=== PATIENT | male | born 1955 | race Caucasian/White ===

== ENCOUNTER → 2018-08-17 07:46 | Outpatient (CLI) | payer MEDICAID, SELFPAY | PROVIDERS: PCP Family Medicine; Visit Provider Family Medicine | DX: R07.89 Other chest pain (principal) | CPT/HCPCS: 93017 ==

== ENCOUNTER → 2018-09-21 12:25 | Outpatient (CLI) | payer MEDICAID, SELFPAY ==
--- NOTE | 2018-09-21 12:27 | NM_ITS ---
History and Indications: Hypertension, hyperlipidemia, tobacco use, chest pain, palpitation and fatigue Procedure: Patient received a 0.4 mg of Lexiscan, resting blood pressure 190/104, with Lexiscan maximum heart rate achieved was 74 bpm which is less than 85% of the maximum predicted heart rate and a blood pressure was 151/90. With Lexiscan patient complained of shortness of breath Electrocardiogram: Resting electrocardiogram showed sinus bradycardia, with Lexiscan there is less than 1.[address] segment depression noted from the baseline EKG. The EKG portion of the Lexiscan Myoview is nondiagnostic. Cardiac stress and resting SPECT images: Cardiac stress and the suspect images were obtained using technetium 99 Myoview 32.6 mCi at stress than 10.4 mCi at rest. Gated SPECT further analysis of segmental wall motion and calculation of the ejection fraction also done. Cardiac stress and resting SPECT images show a partial reversible defect involving the inferior and posterobasal wall suggestive of Lexiscan scar in that area. In addition there is reversible ischemia seen at the apex. Computer derived ejection fraction is 45% with moderate inferior and posterobasal wall hypokinesis, right ventricle is normal size and contractility. Conclusion: 1. The EKG portion of the Lexiscan Myoview is nondiagnostic. 2. Scintigraphic evidence of mixed ischemia and scar involving the inferior and posterobasal wall, mild ischemia seen at the apex also. Computer derived ejection fraction 45% with segmental wall motion abnormality described above, right ventricle is normal size and contractility. 3. Abnormal Lexiscan Myoview study.
--- NOTE | 2018-09-21 12:27 | CA_ITS ---
PROCEDURE: 2-D M-mode and color Doppler study INDICATIONS FOR THE TEST: Chest pain + COPD Heart Murmur Tobacco Smoking+ Palpitations Fatigue Syncope Edema Hypertension+Diabetes Mellitus Rheumatic Fever SOB GARCIA+Obesity Hyperlipidemia+ Family History HD Additional History abn stress test PATIENT INFORMATION HEIGHT: 68 WEIGHT:181 GENDER: Male B/P:180/115 2-D/M-MODE INTERPRETATION: 2-D MEASUREMENTS OBSERVED VALUES IN CMS Right Ventricular Dimension (RVDd) 1.7 Interventricular Septum (Thickness)(IVsd) 0.9 Left Ventricular Internal Dimensions(LVIDd) 5.1 Left Ventricular Posterior Wall (Thickness)(LVPWd) 0.9 Aortic Root 2.9 Aortic Cusp Separation 2.3 Left Atrial Dimensions (LAD) 4.2 2D 1. Left atrium is mildly enlarged, left ventricle is normal size, mild concentric left ventricular hypertrophy, visually estimated ejection fraction 55% with no regional wall motion abnormality. 2. The right atrium and right ventricle are normal size and contractility. 3. The aortic valve is minimally thickened and fibrosed. 4. The mitral and tricuspid valvular grossly normal. 5. The pulmonic valve is poorly visualized. 6. No significant pericardial effusion noted. DOPPLER INTERROGATION: Doppler interrogation of the aortic, mitral and tricuspid valvular presence of mild mitral and tricuspid regurgitation, tricuspid regurgitation jet velocity is inadequate for calculation of the right ventricular systolic pressure, grade 1 diastolic dysfunction seen with tissue Doppler evidence of raised left atrial pressure. CONCLUSION: 1. Mildly enlarged left atrium, normal left ventricular size, mild concentric left ventricular hypertrophy, visually estimated ejection fraction 55% with no regional wall motion abnormality, grade 1 diastolic dysfunction seen with tissue Doppler evidence of raised left atrial pressure. 2. Mild mitral and tricuspid regurgitation 3. No significant pericardial effusion noted.
--- NOTE | 2018-09-21 14:01 | HMH.ITSHM ---
Current Home Medications as stated by this patient Lorenzo Saldana or farm loan representative. []LISINOPRIL DOXCIZOSIN METOPROLOL ASA
== END ==
PROVIDERS: PCP Family Medicine; Visit Provider Internal Medicine
DX: R07.9 Chest pain, unspecified (principal); R06.00 Dyspnea, unspecified; R94.39 Abnormal result of other cardiovascular function study; E78.5 Hyperlipidemia, unspecified; F17.200 Nicotine dependence, unspecified, uncomplicated; I10 Essential (primary) hypertension; R06.83 Snoring; R40.0 Somnolence
CPT/HCPCS: 78452; 93017; 93306; A9502; J2785

== ENCOUNTER → 2018-09-23 08:38 | Outpatient (CLI) | payer MEDICAID, SELFPAY ==
--- NOTE | 2018-09-23 08:40 | AS_ITS ---
Renal Arterial Duplex Indications: 405.91 Unspecified renovascular hypertension. IMPRESSIONS 1. Less than 60% stenosis involving the right renal artery 2. The left renal artery appears normal. History: Risk factors: Current tobacco use. Hypertension. Dyslipidemia. Complete renal arterial duplex. Duplex scan and Doppler flow study including spectral analysis, color and sandoval scale imaging. Height: Height: 172.7cm. Height: 68in. Weight: Weight: 82.1kg. Weight: 180.6lb. Body mass index: BMI: 27.5kg/m^2. Body surface area: BSA: 2m^2. Location: Vascular laboratory. Patient status: Outpatient. Findings: Cyst in the left lower pole cortex. Dimensions: 2cm (AP D). Cyst in the right lower pole cortex. Dimensions: 1cm (AP D). Tables: Arterial flow: + +--------+--------+ Location V sys V ed + +--------+--------+ Right renal - proximal 198cm/s 33.4cm/s + +--------+--------+ Right renal - mid 104cm/s 28.2cm/s + +--------+--------+ Right renal - distal 138cm/s 31.4cm/s + +--------+--------+ Left renal - proximal 101cm/s 23.7cm/s + +--------+--------+ Left renal - mid 118cm/s 31.9cm/s + +--------+--------+ Left renal - distal 71cm/s 12.8cm/s + +--------+--------+ RIGHT RENAL-ORIGIN 216cm/s 67.2cm/s + +--------+--------+ LEFT RENAL-ORIGIN 112cm/s 27.5cm/s + +--------+--------+ Aorta-prox 90.9cm/s -------- + +--------+--------+ Renal anatomy: + +------+------+ Left Right + +------+------+ Long axis 11.8cm 11.5cm + +------+------+ Short axis 7.9cm 8.4cm + +------+------+ Cortical thickness 1.5cm 1.5cm + +------+------+ Velocity ratios: + +-----+ V sys + +-----+ Right renal/aortic 2.4 + +-----+ Left renal/aortic 1.3 + +-----+ (Report amended ) Electronically signed by: Skyler Gleason [id number]
== END ==
PROVIDERS: PCP Family Medicine; Visit Provider Internal Medicine
DX: I10 Essential (primary) hypertension (principal); R06.00 Dyspnea, unspecified; E78.5 Hyperlipidemia, unspecified; R06.83 Snoring; R07.9 Chest pain, unspecified; R40.0 Somnolence; R94.39 Abnormal result of other cardiovascular function study; F17.200 Nicotine dependence, unspecified, uncomplicated
CPT/HCPCS: 93976

== ENCOUNTER → 2018-12-14 10:44 | Outpatient (CLI) | payer MEDICAID, SELFPAY ==
[2018-12-14 11:57] LABS: Basophils % 0.4 % (0.1-2.0); Eosinophils # 0.2 K/mm3 (0.0-0.4); Hematocrit 32.6 % (42.0-52.0); Hemoglobin 11.6 g/dL (14.1-18.0); Lymphocytes # 0.9 K/mm3 (0.7-4.5); Lymphocytes % 22.2 % (10-50); Mean Corpuscular HGB Conc 35.7 g/dL (31.8-35.4); Mean Corpuscular Hemoglobin 34.9 pg (27.0-31.2); Mean Corpuscular Volume 97.7 fl (80-94); Mean Platelet Volume 7.2 fl (7.4-10.4); Monocytes # 0.4 K/mm3 (0.1-1.0); Monocytes % 8.8 % (1.7-9.3); Neutrophils # 2.7 K/mm3 (1.8-7.8); Neutrophils % 63.6 % (37.0-80.0); Platelet Count 198 K/mm3 (142-424); Red Blood Count 3.33 M/mm3 (4.60-6.20); Red Cell Distribution Width 14.1 % (11.5-17.5); White Blood Count 4.2 K/mm3 (4.8-10.8)
[2018-12-14 13:11] LABS: Anion Gap 15.2 mEq/L (5-15); Blood Urea Nitrogen 32 mg/dL (7-18); Carbon Dioxide 26 mmol/L (21.0-32.0); Chloride 106 mmol/L (98-107); Creatinine,Serum 2.05 mg/dL (0.70-1.30); Estimated Glomerular Filt Rate 33 ml/min (>60); GFR (African American) 40 ML/MIN (>60); Glucose 121 mg/dL (74-106); Potassium 5.2 mmoL/L (3.5-5.1); Sodium 142 mmol/L (136-145)
== END ==
PROVIDERS: PCP Family Medicine; Visit Provider Thoracic Surgery (Cardiothoracic Vascular Surgery)
DX: I25.10 Atherosclerotic heart disease of native coronary artery without angina pectoris (principal)
CPT/HCPCS: 36415; 80048; 85025

== ENCOUNTER 2018-12-21 13:50 | Outpatient (RCR) | payer MEDICAID, SELFPAY | END 2019-03-04 15:28 | disposition home or self-care (01) | LOC: PT 13:50 | PROVIDERS: Visit Provider Internal Medicine | DX: I25.10 Atherosclerotic heart disease of native coronary artery without angina pectoris (principal) | CPT/HCPCS: 93798 ==

== ENCOUNTER → 2019-01-11 14:13 | Outpatient (CLI) | payer MEDICAID, SELFPAY ==
[2019-01-11 15:54] LABS: Anion Gap 16.2 mEq/L (5-15); Blood Urea Nitrogen 37 mg/dL (7-18); Carbon Dioxide 24 mmol/L (21.0-32.0); Chloride 105 mmol/L (98-107); Estimated Glomerular Filt Rate 36 ml/min (>60); GFR (African American) 44 ML/MIN (>60); Glucose 94 mg/dL (74-106); Potassium 5.2 mmoL/L (3.5-5.1); Sodium 140 mmol/L (136-145)
== END ==
PROVIDERS: Visit Provider Nurse Practitioner Family
DX: I25.810 Atherosclerosis of coronary artery bypass graft(s) without angina pectoris (principal); I70.1 Atherosclerosis of renal artery; I73.9 Peripheral vascular disease, unspecified; I10 Essential (primary) hypertension; E78.49 Other hyperlipidemia; F17.200 Nicotine dependence, unspecified, uncomplicated; Z95.1 Presence of aortocoronary bypass graft
CPT/HCPCS: 36415; 80048

== ENCOUNTER → 2019-02-08 14:16 | Outpatient (CLI) | payer MEDICAID, SELFPAY ==
[2019-02-08 16:29] LABS: Anion Gap 17.2 mEq/L (5-15); Blood Urea Nitrogen 34 mg/dL (7-18); Calcium 9.3 mg/dL (8.5-10.1); Carbon Dioxide 23 mmol/L (21.0-32.0); Chloride 105 mmol/L (98-107); Creatinine,Serum 2.05 mg/dL (0.70-1.30); Estimated Glomerular Filt Rate 33 ml/min (>60); GFR (African American) 40 ML/MIN (>60); Glucose 94 mg/dL (74-106); Sodium 139 mmol/L (136-145)
[2019-02-09 11:10] LABS: Potassium 6.2 mmoL/L (3.5-5.1)
== END ==
PROVIDERS: Visit Provider Physician Assistant
DX: I10 Essential (primary) hypertension (principal); I25.810 Atherosclerosis of coronary artery bypass graft(s) without angina pectoris; I70.1 Atherosclerosis of renal artery
CPT/HCPCS: 36415; 80048; 93005

== ENCOUNTER → 2019-08-16 13:43 | Outpatient (CLI) | payer OTHER, SELFPAY | PROVIDERS: PCP Family Medicine; Visit Provider Urology | DX: R42 Dizziness and giddiness (principal); R07.9 Chest pain, unspecified; R06.00 Dyspnea, unspecified; I25.10 Atherosclerotic heart disease of native coronary artery without angina pectoris; I70.1 Atherosclerosis of renal artery; E78.2 Mixed hyperlipidemia; I10 Essential (primary) hypertension; F17.200 Nicotine dependence, unspecified, uncomplicated; I73.9 Peripheral vascular disease, unspecified; Z95.1 Presence of aortocoronary bypass graft | CPT/HCPCS: 93270 ==

== ENCOUNTER → 2019-08-24 09:32 | Outpatient (CLI) | payer OTHER, SELFPAY ==
--- NOTE | 2019-08-24 09:33 | CA_ITS ---
APPROVED REPORT Ophthalmology Surgical Technician: Meagan Zelaya RVT Laterality: Bilateral Study Quality: Good Indications: dizziness Risk Factors Hypertension: Hyperlipidemia Smoking Doppler Spectral Velocity Analysis ECA (R) 60.80/10.60 cm/s ECA (L) 54.90/7.80 cm/s dICA (R) 55.70/23.40 cm/s dICA (L) 43.50/14.90 cm/s Aura (R) 67.20/30.20 cm/s Aura (L) 42.30/18.80 cm/s pICA (R) 60.70/24.30 cm/s pICA (L) 44.50/10.00 cm/s dCCA (R) 57.00/18.40 cm/s dCCA (L) 60.80/18.70 cm/s pCCA (R) 62.40/17.50 cm/s pCCA (L) 56.30/15.40 cm/s Vert (R) 33.60/11.80 cm/s Vert (L) 39.90/12.60 cm/s ICA/CCA 1.18 ICA/CCA 0.73 Findings Study suggests less than 20% stenosis of the right internal cartoid artery. Study suggests less than 20% stenosis of the left internal cartoid artery. Antegrade flow seen bilateral vertebral arteries. Conclusion No increased velocities to suggest hemodynamically significant stenosis in either internal carotid artery. Electronically signed by : Skyler Gleason MD 08/24/2019 16:40:08
--- NOTE | 2019-08-24 09:33 | CA_ITS ---
APPROVED REPORT EXAM: Comprehensive 2D, Doppler, and color-flow Echocardiogram Glove Presser: Meagan Zelaya RVT Ht: 5 ft 8 in Wt: 170lbs BSA: 1.91 BP: 130/80 mmHg Indications: Chest Pain, Shortness of Breath, Dyspnea, CAD, Hyperlipidemia, Hypertension,Smoker 2D Dimensions LVOT 2.33 cm (M/F) 1.5-2.5 M-Mode Dimensions RVDd 2.47 cm (0.9-2.6) LVDd 5.25 cm (3.5-5.7) LVDs 3.58 cm (3.5-5.7) IVSd 0.80 cm (0.6-1.1) PWd 1.14 cm (0.6-1.1) EF (Teich) 59.40% FS 31.80% EDV (Teich) 132.40 mL ESV (Teich) 53.70 mL LV Diastology E/A Ratio 1.65 Mitral Valve MV A Velocity 45.00 (40-130 cm/s) Left Ventricle Left atrium is mildly enlarged, left ventricle is normal size, mild concentric left ventricular hypertrophy, visually estimated ejection fraction 55% with no regional wall motion abnormality, endocardial surfaces are poorly visualized. Diastolic parameters are inconclusive. Right Ventricle Right atrium and right ventricular mildly enlarged with normal contractility. Aortic Valve Aortic valve is minimally thickened and fibrosed, there is no aortic stenosis aortic insufficiency. Mitral Valve Mitral valve is grossly normal, there is mild mitral regurgitation. Tricuspid Valve Tricuspid valve is grossly normal, there is mild tricuspid regurgitation, tricuspid regurgitation jet velocity is inadequate for calculation of the right ventricular systolic pressure. Pulmonic Valve Pulmonic valve is poorly visualized. Great Vessels Aortic root is normal size. Pericardium No significant pericardial effusion noted. Conclusion 1. Mildly enlarged left atrium, normal left ventricular size, mild concentric left ventricular hypertrophy, visually estimated ejection fraction 55% with no regional wall motion abnormality, diastolic parameters are inconclusive. 2. Mildly enlarged right ventricle with normal contractility. 3. Mild mitral and tricuspid regurgitation. 4. No significant pericardial effusion noted. Electronically signed by : Meet Vivar, 08/25/2019 16:27:51
== END ==
PROVIDERS: PCP Family Medicine; Visit Provider Urology
DX: R42 Dizziness and giddiness (principal); E78.2 Mixed hyperlipidemia; F17.200 Nicotine dependence, unspecified, uncomplicated; I10 Essential (primary) hypertension; I25.10 Atherosclerotic heart disease of native coronary artery without angina pectoris; I70.1 Atherosclerosis of renal artery; I73.9 Peripheral vascular disease, unspecified; Z95.1 Presence of aortocoronary bypass graft; E78.5 Hyperlipidemia, unspecified
CPT/HCPCS: 93306; 93880

== ENCOUNTER → 2023-04-21 13:59 | Outpatient (CLI) | payer MEDICARE, SELFPAY ==
--- NOTE | 2023-04-21 14:05 | US_ITS ---
FINAL REPORT TECHNIQUE: Ultrasound images of the kidneys and bladder were obtained. CLINICAL HISTORY: RENAL INSUFFICIENCY FINDINGS: The right kidney measures 11.5 cm in length. It is normal in echogenicity. There is no hydronephrosis. The left kidney measures 10.4 cm in length. It is normal in echogenicity. There is no hydronephrosis. There are multiple bilateral renal cysts measuring up to 3.7 cm on the left and 3.2 cm on the right. The spleen is unremarkable. IMPRESSION: Multiple bilateral renal cysts. Reviewed, Interpreted and Dictated by Luigi Hassan III, MD Transcribed by Juliette Goldman Authenticated and [facility]
[2023-04-21 15:30] LABS: Chloride 113 mmol/L (98-107); Potassium 5.4 mmoL/L (3.5-5.1); Sodium 142 mmol/L (136-145)
[2023-04-21 15:33] LABS: Anion Gap 16.4 mEq/L (5-15); Blood Urea Nitrogen 55 mg/dl (9-20); Carbon Dioxide 18 mmol/L (22.0-30.0); Estimated Glomerular Filt Rate 26 ml/min (>60); GFR (African American) 31 ML/MIN (>60)
[2023-04-21 15:34] LABS: Calcium 8.3 mg/dl (8.4-10.2); Glucose 108 mg/dl (74-100)
== END ==
PROVIDERS: PCP Family Medicine; Visit Provider Nurse Practitioner Family
DX: N28.9 Disorder of kidney and ureter, unspecified (principal)
CPT/HCPCS: 36415; 76770; 80048

== ENCOUNTER → 2023-05-13 07:54 | Outpatient (CLI) | payer MEDICARE, SELFPAY ==
--- NOTE | 2023-05-13 08:04 | CA_ITS ---
FINAL REPORT TECHNIQUE: Grayscale, color Doppler and duplex Doppler ultrasound of the kidneys, aorta and renal arteries was performed. Multiple velocities were measured. CLINICAL HISTORY: RENAL FAILURE,HTN,STENT RIGHT KIDNEY(LUCHO) FINDINGS: Aorta velocity: 97 cm/sec Right kidney: 11.6 cm. There is no evidence of hydronephrosis. There are bilateral renal cysts. Largest cyst on the right measures 3.7 cm. Right intrarenal RI: .61 Right renal artery velocity: 136 cm/sec. Right RAR (Renal artery-Aortic Ratio): 1.4 Left Kidney: 12.6 cm. There is no hydronephrosis. There are bilateral renal cysts. Largest cyst on the left measures 4.1 cm. Left intrarenal RI: 0.66 Left renal artery velocity: 155 cm/sec. Left RAR (Renal Artery-Aortic Ratio): 1.6 IMPRESSION: No evidence of significant renal artery stenosis. Bilateral renal cysts. CT angiogram or postcontrast MR angiogram would be more sensitive for evaluation of possible renal artery stenosis. Reviewed, Interpreted and Dictated by Luigi Hassan III, MD Transcribed by Juliette Goldman Authenticated and . [facility]
== END ==
LOC: RT 07:57
PROVIDERS: PCP Family Medicine; Visit Provider Nurse Practitioner Family
DX: N17.9 Acute kidney failure, unspecified (principal)
CPT/HCPCS: 93976

== ENCOUNTER → 2023-07-08 06:47 | Outpatient (CLI) | payer MEDICARE, SELFPAY ==
--- NOTE | 2023-07-08 07:13 | CT_ITS ---
FINAL REPORT TECHNIQUE: Axial images were obtained from the lung apex to the mid abdomen by computed tomography. This study was performed with techniques to keep radiation doses as low as reasonably achievable (ALARA). Individualized dose reduction techniques using automated exposure control or adjustment of mA and/or kV according to the patient's size were employed. CLINICAL HISTORY: H/O TOBACCO USE former smoker, quit 14 months. smoked 1 ppd x 35 years FINDINGS: CHEST CT LOW DOSE CTDI vol (mGy): 2.90 DLP (mGy-cm): 117.50 There is dense vascular calcification of the coronary arteries. There is no axillary adenopathy. There is no hilar or mediastinal adenopathy. The heart is normal in size. There is no pericardial or pleural effusion. Lung window images demonstrate no suspicious infiltrate or nodule. Limited images of the upper abdomen are unremarkable. IMPRESSION: Lung RADS category 1. Recommend 12 month follow-up low-dose chest CT. Reviewed, Interpreted and Dictated by Gadiel Kilpatrick MD Transcribed by Juliette Goldman Authenticated and [facility]
--- NOTE | 2023-07-08 07:14 | US_ITS ---
FINAL REPORT CLINICAL HISTORY: ABD PAIN FINDINGS: RIGHT UPPER QUADRANT ULTRASOUND Sonographic images of the right upper quadrant were obtained. The pancreas is partially obscured.The liver has an unremarkable appearance. There is a small amount of sludge in the gallbladder. The gallbladder wall is normal. The common duct is normal. Multiple right renal cysts are identified. IMPRESSION: Gallbladder sludge. Right renal cysts. Reviewed, Interpreted and Dictated by Gadiel Kilpatrick MD Transcribed by Juliette Goldman Authenticated and [facility]
== END ==
LOC: RAD 06:50
PROVIDERS: PCP Family Medicine; Visit Provider Nurse Practitioner Family
DX: Z87.891 Personal history of nicotine dependence (principal); R10.9 Unspecified abdominal pain
CPT/HCPCS: 71271; 76705

== ENCOUNTER 2023-10-19 10:18 | Outpatient (CLI) | payer MEDICARE, SELFPAY ==
[2023-10-19 10:31] LABS: Microscopic, Urine URINE MICROSCOPIC (MICROSCOPIC)
[2023-10-19 10:47] LABS: Hematocrit 35.1 % (42.0-52.0); Hemoglobin 11.4 g/dL (14.1-18.0); Mean Corpuscular HGB Conc 32.4 g/dL (31.8-35.4); Mean Corpuscular Hemoglobin 33.5 pg (27.0-31.2); Mean Corpuscular Volume 103.3 fl (80-94); Platelet Count 205 K/mm3 (142-424); Red Cell Distribution Width 13.4 % (11.5-17.5); White Blood Count 4.9 K/mm3 (4.8-10.8)
[2023-10-19 10:52] LABS: Appearance,Urine CLEAR (Clear); Bilirubin,Urine Negative (Negative); Blood, Urine TRACE-I (Negative); Color,Urine YELLOW (Yellow); Glucose,Urine (UA) Negative (Negative); Ketones,Urine Negative (Negative); Leukocyte Esterase,Urine Negative (Negative); Nitrate,Urine Negative (Negative); PH,Urine 5.5 (5.0-8.5); Protein,Urine 2+ (Negative); Specific Gravity, Urine >= 1.030 (1.005-1.030); Urobilinogen,Urine 0.2 EU/dl (0.2)
[2023-10-19 11:10] LABS: Amorphous Sediment,Urine 1+ /lpf; Bacteria,Urine Trace /lpf; Mucus,Urine 1+ /lpf
[2023-10-19 11:11] LABS: Fine Granular Casts,Urine Occasional #/lpf (0)
[2023-10-19 11:12] LABS: Creatinine,Urine Random 242 mg/dL (Not Estab.)
[2023-10-19 11:14] LABS: Alanine Aminotransferase 18 U/L (12-78); Albumin/Globulin Ratio 1.7 (1.1-1.8); Alkaline Phosphatase 116 U/L (38-126); Anion Gap 11.3 mEq/L (5-15); Aspartate Amino Transferase 24 U/L (17-59); Bilirubin,Total 0.8 mg/dl (0.2-1.3); Blood Urea Nitrogen 41 mg/dl (9-20); Calcium 9.4 mg/dl (8.4-10.2); Carbon Dioxide 20 mmol/L (22.0-30.0); Chloride 113 mmol/L (98-107); Estimated Glomerular Filt Rate 30 ml/min (>60); GFR (African American) 36 ML/MIN (>60); Globulin 2.4 g/dL (1.3-3.2); Glucose 112 mg/dl (74-100); Potassium 5.3 mmoL/L (3.5-5.1); Sodium 139 mmol/L (136-145); Total Protein,Serum 6.4 g/dl (6.3-8.2); Uric Acid 8.6 mg/dl (3.5-8.5)
[2023-10-19 11:25] LABS: Intact Parathyroid Hormone 376.8 pg/mL (7.5-53.5)
[2023-10-19 11:43] LABS: Prostate Specific Ag Screen 1.8 ng/ml (0.0-4.0)
[2023-10-19 12:16] LABS: 25-OH Vitamin D, Total 12.9 ng/mL (30-100)
== END 2023-10-19 23:59 ==
LOC: LAB 10:20
PROVIDERS: PCP Family Medicine; Visit Provider Internal Medicine Nephrology
DX: N18.30 Chronic kidney disease, stage 3 unspecified; I10 Essential (primary) hypertension; Z12.5 Encounter for screening for malignant neoplasm of prostate
CPT/HCPCS: 36415; 80053; 81001; 82043; 82306; 82570; 83970; 84156; 84550; 85014; 85018; 85048; 85049; G0103

== ENCOUNTER 2024-02-03 12:17 | Outpatient (CLI) | payer MEDICARE, SELFPAY ==
[2024-02-03 13:15] LABS: Alanine Aminotransferase 16 U/L (12-78); Albumin Level 4.2 g/dl (3.5-5.0); Albumin/Globulin Ratio 1.7 (1.1-1.8); Alkaline Phosphatase 76 U/L (38-126); Anion Gap 14.4 mEq/L (5-15); Aspartate Amino Transferase 23 U/L (17-59); Bilirubin,Indirect 0.5 mg/dL (0.0-0.9); Bilirubin,Total 0.5 mg/dl (0.2-1.3); Bilirubin,Unconjugated 0.6 mg/dL (0.0-1.1); Blood Urea Nitrogen 44 mg/dl (9-20); Carbon Dioxide 21 mmol/L (22.0-30.0); Chloride 113 mmol/L (98-107); Estimated Glomerular Filt Rate 30 ml/min (>60); GFR (African American) 36 ML/MIN (>60); Globulin 2.5 g/dL (1.3-3.2); Glucose 106 mg/dl (74-100); Potassium 5.4 mmoL/L (3.5-5.1); Sodium 143 mmol/L (136-145); Total Protein,Serum 6.7 g/dl (6.3-8.2)
== END 2024-02-03 23:59 | disposition home or self-care (01) ==
LOC: LAB 12:24
PROVIDERS: PCP Family Medicine; Visit Provider Internal Medicine Nephrology
DX: N18.32 Chronic kidney disease, stage 3b (principal); E55.9 Vitamin D deficiency, unspecified; I10 Essential (primary) hypertension; E21.3 Hyperparathyroidism, unspecified
CPT/HCPCS: 36415; 80053; 80076

== ENCOUNTER 2024-02-17 14:06 | Outpatient (CLI) | payer MEDICARE, SELFPAY ==
[2024-02-17 15:38] LABS: Alanine Aminotransferase 13 U/L (12-78); Albumin Level 3.8 g/dl (3.5-5.0); Albumin/Globulin Ratio 1.4 (1.1-1.8); Alkaline Phosphatase 69 U/L (38-126); Anion Gap 13.1 mEq/L (5-15); Aspartate Amino Transferase 21 U/L (17-59); Bilirubin,Indirect 0.6 mg/dL (0.0-0.9); Bilirubin,Total 0.6 mg/dl (0.2-1.3); Bilirubin,Unconjugated 0.8 mg/dL (0.0-1.1); Blood Urea Nitrogen 45 mg/dl (9-20); Calcium 9.2 mg/dl (8.4-10.2); Carbon Dioxide 21 mmol/L (22.0-30.0); Chloride 112 mmol/L (98-107); Estimated Glomerular Filt Rate 28 ml/min (>60); GFR (African American) 34 ML/MIN (>60); Globulin 2.7 g/dL (1.3-3.2); Glucose 97 mg/dl (74-100); Potassium 5.1 mmoL/L (3.5-5.1); Sodium 141 mmol/L (136-145); Total Protein,Serum 6.5 g/dl (6.3-8.2)
== END 2024-02-17 23:59 | disposition home or self-care (01) ==
LOC: LAB 14:16
PROVIDERS: PCP Family Medicine; Visit Provider Internal Medicine Nephrology
DX: N18.32 Chronic kidney disease, stage 3b (principal); I10 Essential (primary) hypertension; E55.9 Vitamin D deficiency, unspecified; E21.3 Hyperparathyroidism, unspecified; Z72.0 Tobacco use
CPT/HCPCS: 36415; 80053; 80076

== ENCOUNTER 2024-03-18 13:24 | Outpatient (CLI) | payer MEDICARE, SELFPAY ==
[2024-03-18 13:39] LABS: Microscopic, Urine URINE MICROSCOPIC (MICROSCOPIC)
[2024-03-18 14:00] LABS: Basophils % 0.6 % (0.1-2.0); Eosinophils # 0.1 K/mm3 (0.0-0.4); Hematocrit 37.1 % (42.0-52.0); Hemoglobin 11.6 g/dL (14.1-18.0); Lymphocytes # 1.6 K/mm3 (0.7-4.5); Lymphocytes % 22.8 % (10-50); Mean Corpuscular HGB Conc 31.3 g/dL (31.8-35.4); Mean Corpuscular Volume 105.7 fl (80-94); Mean Platelet Volume 7.8 fl (7.4-10.4); Monocytes # 0.4 K/mm3 (0.1-1.0); Monocytes % 5.4 % (1.7-9.3); Neutrophils # 4.8 K/mm3 (1.8-7.8); Neutrophils % 69.3 % (37.0-80.0); Platelet Count 259 K/mm3 (142-424); Red Blood Count 3.51 M/mm3 (4.60-6.20); Red Cell Distribution Width 13.7 % (11.5-17.5); White Blood Count 6.9 K/mm3 (4.8-10.8)
[2024-03-18 14:09] LABS: Appearance,Urine SL CLOUDY (Clear); Bilirubin,Urine Negative (Negative); Blood, Urine 3+ (Negative); Color,Urine YELLOW (Yellow); Glucose,Urine (UA) Negative (Negative); Ketones,Urine Negative (Negative); Leukocyte Esterase,Urine Negative (Negative); Nitrate,Urine Negative (Negative); Protein,Urine 2+ (Negative); Specific Gravity, Urine 1.025 (1.005-1.030); Urobilinogen,Urine 0.2 EU/dl (0.2)
[2024-03-18 14:26] LABS: RBC,Urine TNTC #/hpf (0-3)
[2024-03-18 14:27] LABS: Bacteria,Urine 2+ /lpf
[2024-03-18 14:37] LABS: 25-OH Vitamin D, Total 57.3 ng/mL (30-100)
[2024-03-18 14:56] LABS: Alanine Aminotransferase 15 U/L (12-78); Albumin Level 4.1 g/dl (3.5-5.0); Albumin/Globulin Ratio 1.5 (1.1-1.8); Alkaline Phosphatase 66 U/L (38-126); Anion Gap 13.2 mEq/L (5-15); Aspartate Amino Transferase 25 U/L (17-59); Bilirubin,Total 0.7 mg/dl (0.2-1.3); Blood Urea Nitrogen 35 mg/dl (9-20); Calcium 9.7 mg/dl (8.4-10.2); Carbon Dioxide 21 mmol/L (22.0-30.0); Chloride 113 mmol/L (98-107); Estimated Glomerular Filt Rate 30 ml/min (>60); GFR (African American) 36 ML/MIN (>60); Globulin 2.7 g/dL (1.3-3.2); Glucose 110 mg/dl (74-100); Potassium 5.2 mmoL/L (3.5-5.1); Sodium 142 mmol/L (136-145); Total Protein,Serum 6.8 g/dl (6.3-8.2); Uric Acid 10.9 mg/dl (3.5-8.5)
[2024-03-18 16:08] LABS: Hemoglobin A1C 5.5 % (4.0-6.0)
[2024-03-23 10:45] LABS: Creatinine,Urine Random 250 mg/dL (Not Estab.)
[2024-03-28 14:10] LABS: PTH Related Peptide < 2.0 pmol/L (.)
== END 2024-03-18 23:59 | disposition home or self-care (01) ==
LOC: LAB 13:26
PROVIDERS: PCP Family Medicine; Visit Provider Internal Medicine Nephrology
DX: N18.32 Chronic kidney disease, stage 3b (principal); E55.9 Vitamin D deficiency, unspecified; E21.3 Hyperparathyroidism, unspecified; I12.0 Hypertensive chronic kidney disease with stage 5 chronic kidney disease or end stage renal disease
CPT/HCPCS: 36415; 80053; 81001; 82306; 82397; 82570; 83036; 84156; 84550; 85025; 87086

== ENCOUNTER 2024-04-19 12:01 | Outpatient (CLI) | payer MEDICARE, SELFPAY ==
[2024-04-19 13:31] LABS: Alanine Aminotransferase 17 U/L (12-78); Albumin Level 4.2 g/dl (3.5-5.0); Alkaline Phosphatase 64 U/L (38-126); Aspartate Amino Transferase 25 U/L (17-59); Bilirubin,Direct 0.3 mg/dl (0.0-0.4); Bilirubin,Indirect 0.6 mg/dL (0.0-0.9); Bilirubin,Total 0.9 mg/dl (0.2-1.3); Bilirubin,Unconjugated 0.6 mg/dL (0.0-1.1); Total Protein,Serum 6.6 g/dl (6.3-8.2)
== END 2024-04-19 23:59 | disposition home or self-care (01) ==
LOC: LAB 12:08
PROVIDERS: PCP Family Medicine; Visit Provider Internal Medicine Nephrology
DX: N18.32 Chronic kidney disease, stage 3b (principal); I10 Essential (primary) hypertension; E55.9 Vitamin D deficiency, unspecified; E21.3 Hyperparathyroidism, unspecified
CPT/HCPCS: 36415; 80076

== ENCOUNTER 2024-05-20 13:09 | Outpatient (CLI) | payer MEDICARE, SELFPAY ==
[2024-05-20 14:03] LABS: Alanine Aminotransferase 15 U/L (12-78); Alkaline Phosphatase 62 U/L (38-126); Aspartate Amino Transferase 20 U/L (17-59); Bilirubin,Direct 0.3 mg/dl (0.0-0.4); Bilirubin,Indirect 0.3 mg/dL (0.0-0.9); Bilirubin,Total 0.6 mg/dl (0.2-1.3); Bilirubin,Unconjugated 0.4 mg/dL (0.0-1.1); Total Protein,Serum 6.3 g/dl (6.3-8.2)
== END 2024-05-20 23:59 | disposition home or self-care (01) ==
PROVIDERS: PCP Family Medicine; Visit Provider Internal Medicine Nephrology
DX: N18.32 Chronic kidney disease, stage 3b (principal); I10 Essential (primary) hypertension; E55.9 Vitamin D deficiency, unspecified; E21.3 Hyperparathyroidism, unspecified
CPT/HCPCS: 36415; 80076

== ENCOUNTER 2024-06-21 14:33 | Outpatient (CLI) | payer MEDICARE, SELFPAY ==
[2024-06-21 15:36] LABS: Alanine Aminotransferase 14 U/L (12-78); Albumin Level 4.2 g/dl (3.5-5.0); Alkaline Phosphatase 63 U/L (38-126); Aspartate Amino Transferase 21 U/L (17-59); Bilirubin,Direct 0.4 mg/dl (0.0-0.4); Bilirubin,Indirect 0.2 mg/dL (0.0-0.9); Bilirubin,Total 0.6 mg/dl (0.2-1.3); Bilirubin,Unconjugated 0.1 mg/dL (0.0-1.1); Total Protein,Serum 6.3 g/dl (6.3-8.2)
== END 2024-06-21 23:59 | disposition home or self-care (01) ==
LOC: LAB 14:34
PROVIDERS: PCP Family Medicine; Visit Provider Internal Medicine Nephrology
DX: N18.32 Chronic kidney disease, stage 3b (principal); I10 Essential (primary) hypertension; E21.3 Hyperparathyroidism, unspecified; E55.9 Vitamin D deficiency, unspecified
CPT/HCPCS: 36415; 80076

== ENCOUNTER 2024-07-22 14:22 | Outpatient (CLI) | payer MEDICARE, SELFPAY ==
[2024-07-22 15:48] LABS: Albumin Level 4.3 g/dl (3.5-5.0)
[2024-07-22 15:51] LABS: Alanine Aminotransferase 17 U/L (12-78); Alkaline Phosphatase 67 U/L (38-126); Aspartate Amino Transferase 27 U/L (17-59); Bilirubin,Direct 0.4 mg/dl (0.0-0.4); Bilirubin,Indirect 0.3 mg/dL (0.0-0.9); Bilirubin,Total 0.7 mg/dl (0.2-1.3); Bilirubin,Unconjugated 0.3 mg/dL (0.0-1.1); Total Protein,Serum 6.7 g/dl (6.3-8.2)
== END 2024-07-22 23:59 | disposition home or self-care (01) ==
LOC: LAB 14:28
PROVIDERS: PCP Family Medicine; Visit Provider Internal Medicine Nephrology
DX: N18.32 Chronic kidney disease, stage 3b (principal); I10 Essential (primary) hypertension; E21.3 Hyperparathyroidism, unspecified; E55.9 Vitamin D deficiency, unspecified
CPT/HCPCS: 80076

== ENCOUNTER 2024-08-12 13:43 | Outpatient (CLI) | payer MEDICARE, SELFPAY ==
[2024-08-12 14:58] LABS: Albumin Level 3.8 g/dl (3.5-5.0); Chloride 107 mmol/L (98-107); Potassium 5.2 mmoL/L (3.5-5.1); Sodium 139 mmol/L (136-145)
[2024-08-12 15:00] LABS: Blood Urea Nitrogen 31 mg/dl (9-20); Estimated Glomerular Filt Rate 28 ml/min (>60); GFR (African American) 34 ML/MIN (>60)
[2024-08-12 15:01] LABS: Alanine Aminotransferase 17 U/L (12-78); Albumin/Globulin Ratio 1.5 (1.1-1.8); Alkaline Phosphatase 75 U/L (38-126); Anion Gap 16.2 mEq/L (5-15); Aspartate Amino Transferase 25 U/L (17-59); Bilirubin,Direct 0.1 mg/dl (0.0-0.4); Bilirubin,Total 0.4 mg/dl (0.2-1.3); Calcium 8.9 mg/dl (8.4-10.2); Carbon Dioxide 21 mmol/L (22.0-30.0); Globulin 2.5 g/dL (1.3-3.2); Glucose 101 mg/dl (74-100); Total Protein,Serum 6.3 g/dl (6.3-8.2)
== END 2024-08-12 23:59 | disposition home or self-care (01) ==
LOC: LAB 13:51
PROVIDERS: PCP Family Medicine; Visit Provider Internal Medicine Nephrology
DX: N18.32 Chronic kidney disease, stage 3b (principal); E55.9 Vitamin D deficiency, unspecified; I10 Essential (primary) hypertension; E21.3 Hyperparathyroidism, unspecified
CPT/HCPCS: 36415; 80053; 82248

== ENCOUNTER 2024-08-24 14:56 | Outpatient (CLI) | payer MEDICARE, SELFPAY ==
[2024-08-24 16:19] LABS: Albumin Level 4.7 g/dl (3.5-5.0)
[2024-08-24 16:22] LABS: Alanine Aminotransferase 17 U/L (12-78); Alkaline Phosphatase 81 U/L (38-126); Aspartate Amino Transferase 25 U/L (17-59); Bilirubin,Direct 0.1 mg/dl (0.0-0.4); Bilirubin,Indirect 0.4 mg/dL (0.0-0.9); Bilirubin,Total 0.5 mg/dl (0.2-1.3); Bilirubin,Unconjugated 0.4 mg/dL (0.0-1.1); Total Protein,Serum 6.7 g/dl (6.3-8.2)
== END 2024-08-24 23:59 | disposition home or self-care (01) ==
LOC: LAB 14:56
PROVIDERS: PCP Family Medicine; Visit Provider Internal Medicine Nephrology
DX: N18.32 Chronic kidney disease, stage 3b (principal); I10 Essential (primary) hypertension; E55.9 Vitamin D deficiency, unspecified; E21.3 Hyperparathyroidism, unspecified
CPT/HCPCS: 36415; 80076

== ENCOUNTER 2024-09-27 14:48 | Outpatient (CLI) | payer MEDICARE, SELFPAY ==
[2024-09-27 16:11] LABS: Albumin Level 4.6 g/dl (3.5-5.0)
[2024-09-27 16:14] LABS: Alanine Aminotransferase 14 U/L (12-78); Alkaline Phosphatase 87 U/L (38-126); Aspartate Amino Transferase 21 U/L (17-59); Bilirubin,Direct 0.1 mg/dl (0.0-0.4); Bilirubin,Indirect 0.5 mg/dL (0.0-0.9); Bilirubin,Total 0.6 mg/dl (0.2-1.3); Bilirubin,Unconjugated 0.4 mg/dL (0.0-1.1); Total Protein,Serum 6.8 g/dl (6.3-8.2)
== END 2024-09-27 23:59 | disposition home or self-care (01) ==
LOC: LAB 14:49
PROVIDERS: PCP Family Medicine; Visit Provider Internal Medicine Nephrology
DX: I12.9 Hypertensive chronic kidney disease with stage 1 through stage 4 chronic kidney disease, or unspecified chronic kidney disease (principal); N18.32 Chronic kidney disease, stage 3b; E55.9 Vitamin D deficiency, unspecified; E21.3 Hyperparathyroidism, unspecified; F17.210 Nicotine dependence, cigarettes, uncomplicated
CPT/HCPCS: 36415; 80076

== ENCOUNTER 2024-10-25 13:45 | Outpatient (CLI) | payer MEDICARE, SELFPAY ==
[2024-10-25 14:37] LABS: Albumin Level 4.2 g/dl (3.5-5.0)
[2024-10-25 14:40] LABS: Alanine Aminotransferase 14 U/L (12-78); Alkaline Phosphatase 70 U/L (38-126); Aspartate Amino Transferase 24 U/L (17-59); Bilirubin,Direct 0.1 mg/dl (0.0-0.4); Bilirubin,Indirect 0.5 mg/dL (0.0-0.9); Bilirubin,Total 0.6 mg/dl (0.2-1.3); Bilirubin,Unconjugated 0.5 mg/dL (0.0-1.1); Total Protein,Serum 6.8 g/dl (6.3-8.2)
--- OUTSIDE RECORDS SUMMARY | 2024-10-27 21:19 | XMS_ITS ---
Author Organization Unknown Medications Date Medication Dosage DosageUnit StartDate StopDate StopReason Active DoseQuantity DoseUnit Dispense DispenseUnit Refills NdcCode DrugCode PharmacyId IsPrescription MappedMedication Srcstatus 03/28 00:00 :00 AMLODIPINE 10 mg tablet 1 90 1 294291 23 990 P Unknown Status 03/28 00:00 :00 AMLODIPINE 10 mg tablet 1 90 1 825521 23 990 P Taking 04/18 00:00 :00 amLODIPine Besylate 10 MG Tablet 1 90 Tablet 1 [id number] 054 Start 04/18 00:00 :00 amLODIPine Besylate 10 MG Tablet 0 90 Tablet 1 [id number] 054 Stop 10/01 00:00 :00 amLODIPine Besylate 10 MG Tablet 1 90 Tablet 1 [id number] 054 Start 10/01 00:00 :00 amLODIPine Besylate 10 MG Tablet 0 0048 0716 810 Stop 06/30 00:00 :00 amLODIPine Besylate 10 MG Tablet 1 0048 0716 810 P Taking 05/12 00:00 :00 amLODIPine Besylate 10 MG Tablet 1 0048 0716 810 P Continue 05/12 00:00 :00 amLODIPine Besylate 10 MG Tablet 1 90 1 0048 0716 810 P Taking 05/05 00:00 :00 amLODIPine Besylate 10 MG Tablet 1 90 1 0048 0716 810 P Taking 03/30 00:00 :00 amLODIPine Besylate 10 MG Tablet 1 90 1 0048 0716 810 P Unknown Status 03/30 00:00 :00 amLODIPine Besylate 10 MG Tablet 1 90 1 0048 0716 810 P Taking 12/20 00:00 :00 amLODIPine Besylate 10 MG Tablet 1 90 1 0048 0716 810 P Unknown Status 06/30 00:00 :00 Aspirin 81 MG Tablet Delayed Release 1 [id number] 474 Taking 05/12 00:00 :00 Aspirin 81 MG Tablet Delayed Release 1 [id number] 474 Taking 05/05 00:00 :00 Aspirin 81 MG Tablet Delayed Release 1 [id number] 474 Taking 03/30 00:00 :00 Aspirin 81 MG Tablet Delayed Release 1 [id number] 474 Taking 12/20 00:00 :00 Aspirin 81 MG Tablet Delayed Release 1 [id number] 474 Taking 03/28 00:00 :00 ASPIRIN 81 mg delayed release tablet 1 [id number] 441 Taking 05/12 00:00 :00 ATORVASTATI N 80 mg tablet 1 90 1 5130474 3 012 Start 05/12 00:00 :00 ATORVASTATI N 80 mg tablet 0 90 1 [id number] 3 012 Stop 03/28 00:00 :00 ATORVASTATI N 80 mg tablet 1 90 1 0394025 3 012 P Unknown Status 03/28 00:00 :00 ATORVASTATI N 80 mg tablet 1 90 1 [id number] 3 012 P Taking 05/18 00:00 :00 Atorvastati n Calcium 80 MG Tablet 1 90 Tablet 1 91351375 705 Start 05/18 00:00 :00 Atorvastati n Calcium 80 MG Tablet 0 90 Tablet 1 [id number] 705 Stop 10/01 00:00 :00 Atorvastati n Calcium 80 MG Tablet 1 90 Tablet 1 54449525 705 Start 10/01 00:00 :00 Atorvastati n Calcium 80 MG Tablet 0 90 1 000 25647 705 Stop 06/30 00:00 :00 Atorvastati n Calcium 80 MG Tablet 1 90 1 000 46371 705 P Taking 05/12 00:00 :00 Atorvastati n Calcium 80 MG Tablet 1 90 1 000 30670 705 P Taking 05/05 00:00 :00 Atorvastati n Calcium 80 MG Tablet 1 90 1 000 41421 705 P Taking 03/30 00:00 :00 Atorvastati n Calcium 80 MG Tablet 1 90 1 000 53883 705 P Unknown Status 03/30 00:00 :00 Atorvastati n Calcium 80 MG Tablet 1 90 1 000 12791 705 Taking 12/20 00:00 :00 Atorvastati n Calcium 80 MG Tablet 1 90 1 000 64764 705 Start 03/28 00:00 :00 CLOPIDOGREL 75 mg tablet 1 90 1 99297 629 461 P Unknown Status 03/28 00:00 :00 CLOPIDOGREL 75 mg tablet 1 90 1 57022 629 461 P Taking 04/18 00:00 :00 Clopidogrel Bisulfate 75 MG Tablet 1 90 Tablet 1 70601741 461 Start 04/18 00:00 :00 Clopidogrel Bisulfate 75 MG Tablet 0 90 Tablet 1 00914888 461 Stop 10/01 00:00 :00 Clopidogrel Bisulfate 75 MG Tablet 1 90 Tablet 1 27423566 461 Start 10/01 00:00 :00 Clopidogrel Bisulfate 75 MG Tablet 0 90 1 009 86617 461 Stop 06/30 00:00 :00 Clopidogrel Bisulfate 75 MG Tablet 1 90 1 009 49930 461 P Taking 05/12 00:00 :00 Clopidogrel Bisulfate 75 MG Tablet 1 90 1 009 72447 461 P Taking 05/05 00:00 :00 Clopidogrel Bisulfate 75 MG Tablet 1 90 1 009 02075 461 P Taking 03/30 00:00 :00 Clopidogrel Bisulfate 75 MG Tablet 1 90 1 009 62758 461 P Unknown Status 03/30 00:00 :00 Clopidogrel Bisulfate 75 MG Tablet 1 90 1 009 73829 461 P Taking 12/20 00:00 :00 Clopidogrel Bisulfate 75 MG Tablet 1 90 1 009 09799 461 P Unknown Status 03/28 00:00 :00 DOCUSATE sodium 100 mg tablet 1 75414639 510 Taking 06/30 00:00 :00 Docusate Sodium 100 MG Tablet 1 02704 000 21 Taking 05/12 00:00 :00 Docusate Sodium 100 MG Tablet 1 86985 000 21 Taking 05/05 00:00 :00 Docusate Sodium 100 MG Tablet 1 16443 000 21 Taking 03/30 00:00 :00 Docusate Sodium 100 MG Tablet 1 11246 000 21 Taking 12/20 00:00 :00 Docusate Sodium 100 MG Tablet 1 81593 000 21 Taking 03/28 00:00 :00 DOXAZOSIN 8 mg tablet 1 90 1 33666396 610 P Unknown Status 03/28 00:00 :00 DOXAZOSIN 8 mg tablet 1 90 1 39540321 610 P Taking 07/06 00:00 :00 Doxazosin Mesylate 8 MG Tablet 1 60 Tablet 2 76297047 600 Start 07/06 00:00 :00 Doxazosin Mesylate 8 MG Tablet 0 60 Tablet 2 82064360 600 Stop 01/14 00:00 :00 Doxazosin Mesylate 8 MG Tablet 1 60 Tablet 2 06316275 600 Start 01/14 00:00 :00 Doxazosin Mesylate 8 MG Tablet 0 0009 3206 701 Stop 06/30 00:00 :00 Doxazosin Mesylate 8 MG Tablet 1 0009 3206 701 P Taking 05/12 00:00 :00 Doxazosin Mesylate 8 MG Tablet 1 0009 3206 701 P Continue 05/12 00:00 :00 Doxazosin Mesylate 8 MG Tablet 1 60 Tablet 1 53257951 701 P Taking 05/05 00:00 :00 Doxazosin Mesylate 8 MG Tablet 1 60 Tablet 1 78241175 701 P Increase 05/05 00:00 :00 Doxazosin Mesylate 8 MG Tablet 1 90 1 0009 3206 701 P Taking 03/30 00:00 :00 Doxazosin Mesylate 8 MG Tablet 1 90 1 0009 3206 701 P Unknown Status 03/30 00:00 :00 Doxazosin Mesylate 8 MG Tablet 1 90 1 0009 3206 701 P Taking 12/20 00:00 :00 Doxazosin Mesylate 8 MG Tablet 1 90 1 0009 3206 701 P Unknown Status 06/30 00:00 :00 Furosemide 40 MG Tablet 0 679724 29 925 P Not Taking 05/12 00:00 :00 Furosemide 40 MG Tablet 0 677956 29 925 P Not Taking 05/05 00:00 :00 Furosemide 40 MG Tablet 0 146734 29 925 P Not Taking 03/30 00:00 :00 Furosemide 40 MG Tablet 0 140385 29 925 P Not Taking 12/20 00:00 :00 Furosemide 40 MG Tablet 0 097949 29 925 P Not Taking 03/28 00:00 :00 FUROSEMIDE 40 mg tablet 0 195206 11 710 P Not Taking 06/30 00:00 :00 HYDROcodone -Acetaminop hen 5-325 MG Tablet 0 52051244 301 P Not Taking 05/12 00:00 :00 HYDROcodone -Acetaminop hen 5-325 MG Tablet 0 11333999 301 P Not Taking 05/05 00:00 :00 HYDROcodone -Acetaminop hen 5-325 MG Tablet 0 08064409 301 P Not Taking 03/30 00:00 :00 HYDROcodone -Acetaminop hen 5-325 MG Tablet 0 21057281 301 P Not Taking 12/20 00:00 :00 HYDROcodone -Acetaminop hen 5-325 MG Tablet 0 22495475 301 P Not Taking 06/30 00:00 :00 Levsin 0.125 MG Tablet 06/30/2023 00:00:00 1 80 2 5790061 1 210 P Start 04/18 00:00 :00 Lisinopril 10 MG Tablet 1 90 Tablet 1 6 0861090 090 Start 04/18 00:00 :00 Lisinopril 10 MG Tablet 0 90 Tablet 1 6 0404231 090 Stop 10/01 00:00 :00 Lisinopril 10 MG Tablet 1 90 Tablet 1 6 3418026 090 Start 10/01 00:00 :00 Lisinopril 10 MG Tablet 0 012235 40 701 Stop 06/30 00:00 :00 Lisinopril 10 MG Tablet 1 278942 40 701 P Taking 05/12 00:00 :00 Lisinopril 10 MG Tablet 1 571855 40 701 P Continue 05/12 00:00 :00 Lisinopril 10 MG Tablet 1 30 Tablet 2 0 8010621 701 P Taking 05/05 00:00 :00 Lisinopril 10 MG Tablet 1 30 Tablet 2 0 2917245 701 P Decrease 05/05 00:00 :00 Lisinopril 20 MG Tablet 1 90 1 522055 40 801 P Taking 03/30 00:00 :00 Lisinopril 20 MG Tablet 1 90 1 097404 40 801 P Unknown Status 03/30 00:00 :00 Lisinopril 20 MG Tablet 1 90 1 743365 40 801 P Taking 12/20 00:00 :00 Lisinopril 20 MG Tablet 1 90 1 322126 40 801 P Unknown Status 03/28 00:00 :00 LISINOPRIL 20 mg tablet 1 90 1 971411 42 090 P Unknown Status 03/28 00:00 :00 LISINOPRIL 20 mg tablet 1 90 1 366996 42 090 P Taking 02/24 00:00 :00 LISINOPRIL 20 mg tablet 1 90 1 654574 42 090 P Unknown Status 06/30 00:00 :00 Metoprolol Tartrate 50 MG Tablet 1 0037 8003 201 P Taking 05/12 00:00 :00 Metoprolol Tartrate 50 MG Tablet 1 0037 8003 201 P Decrease 05/12 00:00 :00 Metoprolol Tartrate 100 MG Tablet 1 180 1 003 08461 701 P Taking 05/05 00:00 :00 Metoprolol Tartrate 100 MG Tablet 1 180 1 003 96872 701 P Taking 03/30 00:00 :00 Metoprolol Tartrate 100 MG Tablet 1 180 1 003 29897 701 P Unknown Status 03/30 00:00 :00 Metoprolol Tartrate 100 MG Tablet 1 180 1 003 19019 701 P Taking 12/20 00:00 :00 Metoprolol Tartrate 100 MG Tablet 1 180 1 003 94487 701 P Unknown Status 03/28 00:00 :00 METOPROLOL TARTRATE 100 mg tablet 1 180 1 686 98375 159 P Unknown Status 03/28 00:00 :00 METOPROLOL TARTRATE 100 mg tablet 1 180 1 686 33322 159 P Taking 03/28 00:00 :00 NORCO 325 mg-5 mg tablet 0 07381261 201 P Not Taking
== END 2024-10-25 23:59 | disposition home or self-care (01) ==
LOC: LAB 13:46
PROVIDERS: PCP Family Medicine; Visit Provider Internal Medicine Nephrology
DX: I12.9 Hypertensive chronic kidney disease with stage 1 through stage 4 chronic kidney disease, or unspecified chronic kidney disease (principal); N18.32 Chronic kidney disease, stage 3b; E21.3 Hyperparathyroidism, unspecified; E55.9 Vitamin D deficiency, unspecified
CPT/HCPCS: 36415; 80076

== ENCOUNTER 2024-11-22 13:05 | Outpatient (CLI) | payer MEDICARE, SELFPAY ==
[2024-11-22 13:54] LABS: Microscopic, Urine URINE MICROSCOPIC (MICROSCOPIC)
[2024-11-22 14:02] LABS: Appearance,Urine CLEAR (Clear); Bilirubin,Urine Negative (Negative); Blood, Urine Negative (Negative); Color,Urine YELLOW (Yellow); Glucose,Urine (UA) Negative (Negative); Ketones,Urine Negative (Negative); Leukocyte Esterase,Urine Negative (Negative); Nitrate,Urine Negative (Negative); Protein,Urine 2+ (Negative); Specific Gravity, Urine 1.025 (1.005-1.030); Urobilinogen,Urine 0.2 EU/dl (0.2)
[2024-11-22 14:19] LABS: Albumin Level 4.5 g/dl (3.5-5.0)
[2024-11-22 14:22] LABS: Alanine Aminotransferase 12 U/L (12-78); Alkaline Phosphatase 74 U/L (38-126); Aspartate Amino Transferase 22 U/L (17-59); Bilirubin,Direct 0.2 mg/dl (0.0-0.4); Bilirubin,Indirect 0.3 mg/dL (0.0-0.9); Bilirubin,Total 0.5 mg/dl (0.2-1.3); Bilirubin,Unconjugated 0.4 mg/dL (0.0-1.1); Total Protein,Serum 6.7 g/dl (6.3-8.2)
[2024-11-22 14:22] LABS: Hematocrit 33.2 % (42.0-52.0); Hemoglobin 11.1 g/dL (14.1-18.0); Mean Corpuscular HGB Conc 33.4 g/dL (31.8-35.4); Mean Corpuscular Hemoglobin 33.2 pg (27.0-31.2); Mean Corpuscular Volume 99.4 fl (80-94); Nucleated Red Blood Cells # 0 10^3/uL; Nucleated Red Blood Cells % 0 %; Platelet Count 178 K/mm3 (142-424); Red Blood Count 3.34 M/mm3 (4.60-6.20); Red Cell Distribution Width 12.9 % (11.5-17.5); Red Cell Distribution Width-SD 47.1 fL; White Blood Count 4.7 K/mm3 (4.8-10.8)
[2024-11-22 14:33] LABS: Alanine Aminotransferase 14 U/L (12-78); Albumin Level 4.7 g/dl (3.5-5.0); Alkaline Phosphatase 68 U/L (38-126); Anion Gap 9.2 mEq/L (5-15); Aspartate Amino Transferase 24 U/L (17-59); Bilirubin,Total 0.7 mg/dl (0.2-1.3); Blood Urea Nitrogen 36 mg/dl (9-20); Calcium 9.6 mg/dl (8.4-10.2); Carbon Dioxide 23 mmol/L (22.0-30.0); Chloride 112 mmol/L (98-107); Estimated Glomerular Filt Rate 28 ml/min (>60); GFR (African American) 34 ML/MIN (>60); Globulin 2.3 g/dL (1.3-3.2); Glucose 95 mg/dl (74-100); Potassium 5.2 mmoL/L (3.5-5.1); Sodium 139 mmol/L (136-145)
[2024-11-22 14:47] LABS: Creatinine,Urine Random 205 mg/dL (Not Estab.)
[2024-11-22 15:02] LABS: Bacteria,Urine Trace /lpf
[2024-11-22 15:44] LABS: 25-OH Vitamin D, Total 67.2 ng/mL (30-100)
== END 2024-11-22 23:59 | disposition home or self-care (01) ==
PROVIDERS: PCP Family Medicine; Visit Provider Internal Medicine Nephrology
DX: I12.9 Hypertensive chronic kidney disease with stage 1 through stage 4 chronic kidney disease, or unspecified chronic kidney disease (principal); N18.32 Chronic kidney disease, stage 3b; E55.9 Vitamin D deficiency, unspecified; E21.3 Hyperparathyroidism, unspecified; F17.210 Nicotine dependence, cigarettes, uncomplicated
CPT/HCPCS: 36415; 80053; 80076; 81001; 82306; 82570; 83970; 84156; 85027

== ENCOUNTER 2024-12-07 14:49 | Outpatient (CLI) | payer MEDICARE, SELFPAY ==
[2024-12-07 15:04] LABS: Microscopic, Urine URINE MICROSCOPIC (MICROSCOPIC)
[2024-12-07 15:30] LABS: Appearance,Urine CLEAR (Clear); Bilirubin,Urine Negative (Negative); Blood, Urine Negative (Negative); Color,Urine YELLOW (Yellow); Glucose,Urine (UA) Negative (Negative); Ketones,Urine TRACE (Negative); Leukocyte Esterase,Urine Negative (Negative); Nitrate,Urine Negative (Negative); Protein,Urine 3+ (Negative); Specific Gravity, Urine 1.025 (1.005-1.030); Urobilinogen,Urine 0.2 EU/dl (0.2)
[2024-12-07 15:46] LABS: Bacteria,Urine 1+ /lpf; Mucus,Urine 2+ /lpf; Sperm,Urine OCC /lpf
[2024-12-07 15:47] LABS: Creatinine,Urine Random 308 mg/dL (Not Estab.)
[2024-12-07 16:09] LABS: Basophils % 0.7 % (0.1-2.0); Eosinophils # 0.1 Kmm3 (0.0-0.4); Eosinophils % 2.4 % (0.1-12.0); Hematocrit 33.1 % (42.0-52.0); Immature Granulocytes # 0.01 10^3uL; Immature Granulocytes % 0.2 %; Lymphocytes % 17.7 % (10-50); Mean Corpuscular HGB Conc 33.2 g/dL (31.8-35.4); Mean Corpuscular Hemoglobin 33.3 pg (27.0-31.2); Mean Corpuscular Volume 100.3 fl (80-94); Mean Platelet Volume 10.3 fl (7.4-10.4); Monocytes # 0.6 K/mm3 (0.1-1.0); Monocytes % 10.3 % (1.7-9.3); Neutrophils # 3.7 K/mm3 (1.8-7.8); Neutrophils % 68.7 % (37.0-80.0); Nucleated Red Blood Cells # 0 10^3/uL; Nucleated Red Blood Cells % 0 %; Platelet Count 231 K/mm3 (142-424); Red Cell Distribution Width 13.2 % (11.5-17.5); Red Cell Distribution Width-SD 48.8 fL; White Blood Count 5.4 K/mm3 (4.8-10.8)
[2024-12-07 16:36] LABS: Microalbumin > 1140.000 mg/L (0-16.7); Microalbumin/Creatinine Ratio 370.1
[2024-12-07 17:08] LABS: Alanine Aminotransferase 13 U/L (12-78); Albumin Level 4.7 g/dl (3.5-5.0); Albumin/Globulin Ratio 2.1 (1.1-1.8); Alkaline Phosphatase 67 U/L (38-126); Anion Gap 15.9 mEq/L (5-15); Aspartate Amino Transferase 29 U/L (17-59); Bilirubin,Total 0.6 mg/dl (0.2-1.3); Blood Urea Nitrogen 33 mg/dl (9-20); Calcium 9.4 mg/dl (8.4-10.2); Carbon Dioxide 19 mmol/L (22.0-30.0); Chloride 109 mmol/L (98-107); Estimated Glomerular Filt Rate 27 ml/min (>60); GFR (African American) 33 ML/MIN (>60); Globulin 2.2 g/dL (1.3-3.2); Glucose 102 mg/dl (74-100); Potassium 4.9 mmoL/L (3.5-5.1); Sodium 139 mmol/L (136-145); Total Protein,Serum 6.9 g/dl (6.3-8.2); Uric Acid 10.5 mg/dl (3.5-8.5)
[2024-12-07 17:18] LABS: Intact Parathyroid Hormone 261.5 pg/mL (7.5-53.5)
[2024-12-07 17:24] LABS: 25-OH Vitamin D, Total 67.3 ng/mL (30-100)
[2024-12-07 17:44] LABS: Hemoglobin A1C 5.3 % (4.0-6.0)
== END 2024-12-07 23:59 | disposition home or self-care (01) ==
LOC: LAB 14:50
PROVIDERS: Visit Provider Internal Medicine Nephrology
DX: I12.9 Hypertensive chronic kidney disease with stage 1 through stage 4 chronic kidney disease, or unspecified chronic kidney disease (principal); N18.32 Chronic kidney disease, stage 3b; E55.9 Vitamin D deficiency, unspecified; E21.3 Hyperparathyroidism, unspecified
CPT/HCPCS: 36415; 80053; 81001; 82043; 82306; 82570; 83036; 83970; 84550; 85025

== ENCOUNTER 2024-12-21 12:22 | Outpatient (CLI) | payer MEDICARE, SELFPAY ==
[2024-12-21 14:02] LABS: Albumin Level 4.5 g/dl (3.5-5.0)
[2024-12-21 14:05] LABS: Alanine Aminotransferase 14 U/L (12-78); Alkaline Phosphatase 70 U/L (38-126); Aspartate Amino Transferase 26 U/L (17-59); Bilirubin,Direct 0.3 mg/dl (0.0-0.4); Bilirubin,Indirect 0.3 mg/dL (0.0-0.9); Bilirubin,Total 0.6 mg/dl (0.2-1.3); Bilirubin,Unconjugated 0.3 mg/dL (0.0-1.1); Total Protein,Serum 6.9 g/dl (6.3-8.2)
== END 2024-12-21 23:59 | disposition home or self-care (01) ==
LOC: LAB 12:24
PROVIDERS: Visit Provider Internal Medicine Nephrology
DX: I12.9 Hypertensive chronic kidney disease with stage 1 through stage 4 chronic kidney disease, or unspecified chronic kidney disease (principal); N18.32 Chronic kidney disease, stage 3b; E55.9 Vitamin D deficiency, unspecified; E21.3 Hyperparathyroidism, unspecified
CPT/HCPCS: 36415; 80076

== ENCOUNTER 2025-01-19 14:04 | Outpatient (CLI) | payer MEDICARE, SELFPAY ==
--- OUTSIDE RECORDS SUMMARY | 2025-01-19 14:06 | XMS_ITS | Clinical Summary ---
Author Organization Healthcare Address [address] [place] [address] Care Team Providers Care Transport Operations Inspector Name Role Phone Elio Mehta MD Primary Care Provider [phone]- [phone] Family History Medical History Relation Name Comments Other cancer Brother Alcohol abuse Father Conversions - Other Mother Healthy adult Breast cancer Sister Relation Name Status Comments Brother Father Mother Sister Social History Tobacco Use Types Packs/Day Years Used Date Smoking Tobacco: Former Alcohol Use Standard Drinks/Week Comments Yes 0 (1 standard drink = 0.6 oz pur e alcohol) Sex and Gender Information Value Date Recorded Sex Assigned at Not on file Legal Sex Male 7:13 PM EDT Gender Identity Not on file Sexual Orientation Not on file Last Filed Vital Signs Vital Sign Reading Time Taken Comments Blood Pressure 180/104 12/16/2018 2:16 PM EDT Pulse 82 12/16/2018 2:16 PM EDT Temperature - - Respiratory Rate - - Oxygen Saturation - - Inhaled Oxygen Concentration - - Weight 78.2 kg (172 lb 6.4 oz) 12/16/2018 2:16 P M EDT Height 172.7 cm (5' 8 ) 12/16/2018 2:16 PM EDT Body Mass Index 26.21 12/16/2018 2:16 PM EDT Plan of Treatment Not on file Care Teams Transport Operations Inspector Relationship Specialty Start Date End Date Elio Mehta MD [address] [place] [address] [place] [id number] PCP - General 11/30/20
[2025-01-19 15:14] LABS: Alanine Aminotransferase 11 U/L (12-78); Albumin Level 4.5 g/dl (3.5-5.0); Alkaline Phosphatase 71 U/L (38-126); Aspartate Amino Transferase 26 U/L (17-59); Bilirubin,Direct 0.4 mg/dl (0.0-0.4); Bilirubin,Indirect 0.4 mg/dL (0.0-0.9); Bilirubin,Total 0.8 mg/dl (0.2-1.3); Bilirubin,Unconjugated 0.4 mg/dL (0.0-1.1); Total Protein,Serum 7.1 g/dl (6.3-8.2)
== END 2025-01-19 23:59 | disposition home or self-care (01) ==
LOC: LAB 14:04
PROVIDERS: Visit Provider Internal Medicine Nephrology
DX: I12.9 Hypertensive chronic kidney disease with stage 1 through stage 4 chronic kidney disease, or unspecified chronic kidney disease (principal); N18.32 Chronic kidney disease, stage 3b; E55.9 Vitamin D deficiency, unspecified; E21.3 Hyperparathyroidism, unspecified
CPT/HCPCS: 36415; 80076

== ENCOUNTER 2025-02-16 11:27 | Outpatient (CLI) | payer MEDICARE, SELFPAY ==
--- OUTSIDE RECORDS SUMMARY | 2025-02-16 11:31 | XMS_ITS | Clinical Summary ---
Author Organization Healthcare Address [address] [place] [address] Care Team Providers Care Patient Service Representative Name Role Phone Elio Mehta MD Primary Care Provider +1- [phone] Family History Medical History Relation Name Comments [...] of Treatment Not on file Care Teams Patient Service Representative Relationship Specialty Start Date End Date Elio Mehta MD [address] [place] [address] [place] [address] PCP - General 11/30/20
[2025-02-16 12:41] LABS: Alanine Aminotransferase 12 U/L (12-78); Albumin Level 4.1 g/dl (3.5-5.0); Alkaline Phosphatase 64 U/L (38-126); Aspartate Amino Transferase 26 U/L (17-59); Bilirubin,Direct 0.2 mg/dl (0.0-0.4); Bilirubin,Indirect 0.1 mg/dL (0.0-0.9); Bilirubin,Total 0.3 mg/dl (0.2-1.3); Bilirubin,Unconjugated 0.2 mg/dL (0.0-1.1); Total Protein,Serum 6.2 g/dl (6.3-8.2)
== END 2025-02-16 23:59 | disposition home or self-care (01) ==
LOC: LAB 11:29
PROVIDERS: Visit Provider Internal Medicine Nephrology
DX: I12.9 Hypertensive chronic kidney disease with stage 1 through stage 4 chronic kidney disease, or unspecified chronic kidney disease (principal); N18.32 Chronic kidney disease, stage 3b; E55.9 Vitamin D deficiency, unspecified; E21.3 Hyperparathyroidism, unspecified
CPT/HCPCS: 36415; 80076

== ENCOUNTER 2025-03-17 12:58 | Outpatient (CLI) | payer MEDICARE, SELFPAY ==
--- OUTSIDE RECORDS SUMMARY | 2025-03-17 13:00 | XMS_ITS | Clinical Summary ---
Author Organization Healthcare Address [address] [place] [address] Care Team Providers Care Streetsweeper Operator Name Role Phone Elio Mehta MD Primary Care Provider +1- [phone] Family History Medical History Relation Name Comments [...] of Treatment Not on file Care Teams Streetsweeper Operator Relationship Specialty Start Date End Date Elio Mehta MD [address] [place] [address] [place] [address] PCP - General 11/30/20
[2025-03-17 14:05] LABS: Albumin Level 4.2 g/dl (3.5-5.0)
[2025-03-17 14:07] LABS: Bilirubin,Unconjugated 0.5 mg/dL (0.0-1.1)
[2025-03-17 14:08] LABS: Alanine Aminotransferase 11 U/L (12-78); Alkaline Phosphatase 58 U/L (38-126); Aspartate Amino Transferase 28 U/L (17-59); Bilirubin,Direct 0.2 mg/dl (0.0-0.4); Bilirubin,Indirect 0.5 mg/dL (0.0-0.9); Bilirubin,Total 0.7 mg/dl (0.2-1.3); Total Protein,Serum 6.5 g/dl (6.3-8.2)
== END 2025-03-17 23:59 | disposition home or self-care (01) ==
LOC: LAB 12:59
PROVIDERS: Visit Provider Internal Medicine Nephrology
DX: I12.9 Hypertensive chronic kidney disease with stage 1 through stage 4 chronic kidney disease, or unspecified chronic kidney disease (principal); N18.32 Chronic kidney disease, stage 3b; E21.3 Hyperparathyroidism, unspecified; E55.9 Vitamin D deficiency, unspecified
CPT/HCPCS: 36415; 80076

== ENCOUNTER 2025-04-13 14:44 | Outpatient (CLI) | payer MEDICARE, SELFPAY ==
--- OUTSIDE RECORDS SUMMARY | 2025-04-13 15:14 | XMS_ITS | Clinical Summary ---
Author Organization Healthcare Address [address] [place] [address] Care Team Providers Care Spool Maker Name Role Phone Elio Mehta MD Primary Care Provider +1- [phone] Family History Medical History Relation Name Comments [...] of Treatment Not on file Care Teams Spool Maker Relationship Specialty Start Date End Date Elio Mehta MD [address] [place] [address] [place] [address] PCP - General 11/30/20
[2025-04-13 16:20] LABS: Albumin Level 3.9 g/dl (3.5-5.0)
[2025-04-13 16:23] LABS: Alanine Aminotransferase 12 U/L (12-78); Alkaline Phosphatase 67 U/L (38-126); Aspartate Amino Transferase 24 U/L (17-59); Bilirubin,Direct 0.1 mg/dl (0.0-0.4); Bilirubin,Indirect 0.8 mg/dL (0.0-0.9); Bilirubin,Total 0.9 mg/dl (0.2-1.3); Bilirubin,Unconjugated 0.7 mg/dL (0.0-1.1); Total Protein,Serum 6.3 g/dl (6.3-8.2)
== END 2025-04-13 23:59 | disposition home or self-care (01) ==
LOC: LAB 14:45
PROVIDERS: Visit Provider Internal Medicine Nephrology
DX: E55.9 Vitamin D deficiency, unspecified (principal); E21.3 Hyperparathyroidism, unspecified; I12.9 Hypertensive chronic kidney disease with stage 1 through stage 4 chronic kidney disease, or unspecified chronic kidney disease; N18.32 Chronic kidney disease, stage 3b
CPT/HCPCS: 36415; 80076

== ENCOUNTER 2025-05-12 14:01 | Outpatient (CLI) | payer MEDICARE, SELFPAY ==
--- OUTSIDE RECORDS SUMMARY | 2025-05-12 14:04 | XMS_ITS | Clinical Summary ---
Author Organization Healthcare Address [address] [place] [address] Care Team Providers Care Cloth Dyer Name Role Phone Elio Mehta MD Primary Care Provider +1- [phone] Family History Medical History Relation Name Comments [...] of Treatment Not on file Care Teams Cloth Dyer Relationship Specialty Start Date End Date Elio Mehta MD [address] [place] [address] [place] [address] PCP - General 11/30/20
[2025-05-12 14:34] LABS: Albumin Level 4.0 g/dl (3.5-5.0)
[2025-05-12 14:36] LABS: Alanine Aminotransferase 13 U/L (12-78); Aspartate Amino Transferase 26 U/L (17-59); Bilirubin,Unconjugated 0.5 mg/dL (0.0-1.1)
[2025-05-12 14:37] LABS: Alkaline Phosphatase 79 U/L (38-126); Bilirubin,Direct 0.1 mg/dl (0.0-0.4); Bilirubin,Indirect 0.5 mg/dL (0.0-0.9); Bilirubin,Total 0.6 mg/dl (0.2-1.3); Total Protein,Serum 6.7 g/dl (6.3-8.2)
== END 2025-05-12 23:59 | disposition home or self-care (01) ==
LOC: LAB 14:01
PROVIDERS: Visit Provider Internal Medicine Nephrology
DX: I12.9 Hypertensive chronic kidney disease with stage 1 through stage 4 chronic kidney disease, or unspecified chronic kidney disease (principal); N18.32 Chronic kidney disease, stage 3b; E55.9 Vitamin D deficiency, unspecified; E21.3 Hyperparathyroidism, unspecified
CPT/HCPCS: 36415; 80076

== ENCOUNTER 2025-06-05 12:32 | Outpatient (CLI) | payer MEDICARE, SELFPAY ==
[2025-06-05 13:28] LABS: Hematocrit 32.4 % (42.0-52.0); Hemoglobin 10.7 g/dL (14.1-18.0); Immature Granulocytes % 0.2 %; Mean Corpuscular HGB Conc 33.0 g/dL (31.8-35.4); Mean Corpuscular Hemoglobin 33.2 pg (27.0-31.2); Mean Corpuscular Volume 100.6 fl (80-94); Nucleated Red Blood Cells % 0 %; Platelet Count 206 K/mm3 (142-424); Red Blood Count 3.22 M/mm3 (4.60-6.20); Red Cell Distribution Width-SD 47.3 fL; White Blood Count 6.2 K/mm3 (4.8-10.8)
[2025-06-05 14:12] LABS: Alanine Aminotransferase 13 U/L (12-78); Albumin Level 4.4 g/dl (3.5-5.0); Alkaline Phosphatase 79 U/L (38-126); Aspartate Amino Transferase 29 U/L (17-59); Bilirubin,Direct 0.3 mg/dl (0.0-0.4); Bilirubin,Indirect 0.4 mg/dL (0.0-0.9); Bilirubin,Total 0.7 mg/dl (0.2-1.3); Bilirubin,Unconjugated 0.4 mg/dL (0.0-1.1); Blood Urea Nitrogen 34 mg/dl (9-20); Calcium 9.5 mg/dl (8.4-10.2); Carbon Dioxide 20 mmol/L (22.0-30.0); Chloride 108 mmol/L (98-107); Cholesterol 105 mg/dl (140-200); Creatinine,Serum 2.50 mg/dl (0.66-1.25); Estimated Glomerular Filt Rate 26 ml/min (>60); GFR (African American) 31 ML/MIN (>60); Glucose 104 mg/dl (74-100); HDL Cholesterol 63 mg/dl (40-60); Magnesium 1.9 mg/dl (1.6-2.3); Sodium 138 mmol/L (136-145); Total Protein,Serum 6.8 g/dl (6.3-8.2); Triglycerides 71 mg/dl (30-150)
[2025-06-05 14:26] LABS: Troponin I < 0.01 ng/ml (0.00-0.034)
[2025-06-05 14:28] LABS: Free Thyroxine Index 2.7 ug/dL (5.93-13.13); T4 (Thyroxine) 7.6 ug/dl (5.53-11.0); Triiodothryronine (T3) Uptake 36 % (23.5-40.5)
[2025-06-05 14:29] LABS: Free T4 (Free Thyroxine) 1.24 ng/dl (0.78-2.19)
[2025-06-05 14:42] LABS: Thyroid Stimulating Hormone 1.02 uIU/mL (0.465-4.68); Thyroid Stimulating Hormone 1.03 uIU/mL (0.465-4.68)
[2025-06-05 14:58] LABS: Anion Gap 14.6 mEq/L (5-15); Potassium 4.6 mmoL/L (3.5-5.1)
== END 2025-06-05 23:59 | disposition home or self-care (01) ==
PROVIDERS: Visit Provider Nurse Practitioner Family
DX: I25.10 Atherosclerotic heart disease of native coronary artery without angina pectoris (principal); E78.2 Mixed hyperlipidemia; I10 Essential (primary) hypertension; R00.2 Palpitations; R42 Dizziness and giddiness; R00.0 Tachycardia, unspecified
CPT/HCPCS: 36415; 80048; 80061; 80076; 83735; 84436; 84439; 84443; 84479; 84484; 85025; 93225; 93227

== ENCOUNTER 2025-06-13 11:49 | Outpatient (CLI) | payer MEDICARE, SELFPAY ==
--- OUTSIDE RECORDS SUMMARY | 2025-06-13 11:51 | XMS_ITS | Clinical Summary ---
Author Organization Healthcare Address [address] [place] [address] Care Team Providers Care Panelbeater Name Role Phone Elio Mehta MD Primary Care Provider [phone] Family History Medical History Relation Name Comments [...] of Treatment Not on file Care Teams Panelbeater Relationship Specialty Start Date End Date Elio Mehta MD [address] [place] [address] [place] [id number] PCP - General 11/30/20
[2025-06-13 12:26] LABS: Albumin Level 4.2 g/dl (3.5-5.0)
[2025-06-13 12:28] LABS: Alanine Aminotransferase 15 U/L (12-78); Alkaline Phosphatase 68 U/L (38-126); Aspartate Amino Transferase 33 U/L (17-59); Bilirubin,Direct 0.1 mg/dl (0.0-0.4); Bilirubin,Indirect 0.8 mg/dL (0.0-0.9); Bilirubin,Total 0.9 mg/dl (0.2-1.3); Bilirubin,Unconjugated 0.8 mg/dL (0.0-1.1)
[2025-06-13 12:29] LABS: Total Protein,Serum 6.7 g/dl (6.3-8.2)
== END 2025-06-13 23:59 | disposition home or self-care (01) ==
LOC: LAB 11:49
PROVIDERS: Visit Provider Internal Medicine Nephrology
DX: I12.9 Hypertensive chronic kidney disease with stage 1 through stage 4 chronic kidney disease, or unspecified chronic kidney disease (principal); N18.32 Chronic kidney disease, stage 3b; E55.9 Vitamin D deficiency, unspecified; E21.3 Hyperparathyroidism, unspecified
CPT/HCPCS: 36415; 80076

== ENCOUNTER 2025-06-19 14:38 | Outpatient (CLI) | payer MEDICARE, SELFPAY ==
[2025-06-19 14:49] LABS: Microscopic, Urine URINE MICROSCOPIC (MICROSCOPIC)
--- OUTSIDE RECORDS SUMMARY | 2025-06-19 14:49 | XMS_ITS | Clinical Summary ---
Author Organization Healthcare Address [address] [place] [address] Care Team Providers Care Rental Management Trainee Name Role Phone Elio Mehta MD Primary Care Provider [phone] Family History Medical History Relation Name Comments [...] of Treatment Not on file Care Teams Rental Management Trainee Relationship Specialty Start Date End Date Elio Mehta MD [address] [place] [address] [place] [id number] PCP - General 11/30/20
[2025-06-19 15:27] LABS: Hematocrit 31.8 % (42.0-52.0); Hemoglobin 10.3 g/dL (14.1-18.0); Mean Corpuscular HGB Conc 32.4 g/dL (31.8-35.4); Mean Corpuscular Hemoglobin 33.2 pg (27.0-31.2); Mean Corpuscular Volume 102.6 fl (80-94); Nucleated Red Blood Cells % 0 %; Platelet Count 199 K/mm3 (142-424); Red Blood Count 3.10 M/mm3 (4.60-6.20); Red Cell Distribution Width-SD 47.9 fL; White Blood Count 6.4 K/mm3 (4.8-10.8)
[2025-06-19 16:11] LABS: Alanine Aminotransferase 14 U/L (12-78); Albumin Level 4.3 g/dl (3.5-5.0); Albumin/Globulin Ratio 1.8 (1.1-1.8); Alkaline Phosphatase 69 U/L (38-126); Anion Gap 10.5 mEq/L (5-15); Aspartate Amino Transferase 26 U/L (17-59); Bilirubin,Total 0.6 mg/dl (0.2-1.3); Blood Urea Nitrogen 28 mg/dl (9-20); Calcium 9.7 mg/dl (8.4-10.2); Carbon Dioxide 21 mmol/L (22.0-30.0); Chloride 108 mmol/L (98-107); Creatinine,Serum 2.20 mg/dl (0.66-1.25); Estimated Glomerular Filt Rate 30 ml/min (>60); GFR (African American) 36 ML/MIN (>60); Globulin 2.4 g/dL (1.3-3.2); Glucose 101 mg/dl (74-100); Potassium 4.5 mmoL/L (3.5-5.1); Sodium 135 mmol/L (136-145); Total Protein,Serum 6.7 g/dl (6.3-8.2); Uric Acid 8.6 mg/dl (3.5-8.5)
[2025-06-19 16:41] LABS: 25-OH Vitamin D, Total 44.5 ng/mL (30-100)
[2025-06-19 17:29] LABS: Bilirubin,Urine Negative (Negative); Color,Urine YELLOW (Yellow); Glucose,Urine (UA) Negative (Negative); Ketones,Urine TRACE (Negative); Leukocyte Esterase,Urine Negative (Negative); PH,Urine 5.5 (5.0-8.5); Protein,Urine 2+ (Negative); Specific Gravity, Urine 1.025 (1.005-1.030); Urobilinogen,Urine 0.2 EU/dl (0.2)
[2025-06-19 19:59] LABS: Hemoglobin A1C 5.3 % (4.0-6.0)
== END 2025-06-19 23:59 | disposition home or self-care (01) ==
LOC: LAB 14:40
PROVIDERS: Visit Provider Internal Medicine Nephrology
DX: E55.9 Vitamin D deficiency, unspecified (principal); I12.9 Hypertensive chronic kidney disease with stage 1 through stage 4 chronic kidney disease, or unspecified chronic kidney disease; N18.32 Chronic kidney disease, stage 3b; E21.3 Hyperparathyroidism, unspecified
CPT/HCPCS: 36415; 80053; 81001; 82306; 82570; 83036; 83970; 84156; 84550; 85027

== ENCOUNTER 2025-06-30 14:20 | Outpatient (CLI) | payer MEDICARE, SELFPAY ==
--- NOTE | 2025-06-30 14:30 | CA_ITS ---
FINAL REPORT TECHNIQUE: Color Doppler, duplex Doppler and sandoval scale sonography of the bilateral neck arterial vasculature was performed. Velocities were measured in the carotid arteries. Stenosis evaluation based on the validated velocity criteria. CLINICAL HISTORY: DIZZINESS, EX-SMOKER, BRADYCARDIA, ASCVD H/O CABG FINDINGS: The peak systolic velocity of the right common carotid artery is 65 cm/s. The peak systolic velocity of the right internal carotid artery is 132 cm/s and end diastolic velocity 51 cm/s. The ICA/CCA ratio is 2.24. A moderate amount of plaque is present. The right external carotid artery is patent. The right vertebral artery is patent with antegrade flow. The peak systolic velocity of the left common carotid artery is 64 cm/s. The peak systolic velocity of the left internal carotid artery is 90 cm/s and end diastolic velocity 33 cm/s. The ICA/CCA ratio is 1.5. A moderate amount of plaque is present. The left external carotid artery is patent.The left vertebral artery is patent with antegrade flow. IMPRESSION: Less than 50% bilateral carotid stenoses. Bilateral patent vertebral arteries with antegrade flow. If indicated, CTA or MRA could further evaluate. Reviewed, Interpreted and Dictated by Gadiel Kilpatrick MD Transcribed by Belle Morales Authenticated and [facility]
--- NOTE | 2025-06-30 15:15 | CA_ITS ---
APPROVED REPORT EXAM: Comprehensive 2D, Doppler, and color-flow Echocardiogram Carpenter: MAMADOU Brandon, RVS Ht: 5 ft 8 in Wt: 180lbs BSA: 1.95 BP: 165/88 mmHg Rhythm: Bradycardia Indications: CAD S/P CABG, BRADYCARDIA, EX-SMOKER,HTN, GARCIA Echo Enhancing Agent Comments: TDS: LIMITED WINDOWS DUE TO BODY HABITUS AND LUNG IMPEDANCE 2D Dimensions Left Atrium 3.78 cm M: 3.0 - 4.0 LA Volume 61.30 mL LA Volume Index 31.075406 mL/m2 (M/F) 16-34 EF AP4 56.30 % GL Strain -18.7 % M-Mode Dimensions RVDd 3.80 cm (0.9-2.6) LA Diam 4.00 cm (1.9-4.0) LVDd 4.63 cm (3.5-5.7) LVDs 2.85 cm (3.5-5.7) IVSd 0.99 cm (0.6-1.1) PWd 1.37 cm (0.6-1.1) EF (Teich) 68.70% EPSs 0.38 cm FS 38.40% EDV (Teich) 98.80 mL TAPSE 1.65 (<1.7) ESV (Teich) 30.90 mL LV Diastology E Decel Time 150 (160-240 msec) E/A Ratio 0.98 MED A' 10.30 cm/s LAT A' 8.90 cm/s Aortic Valve TRENA Index 1.29 cm2/m2 AoV Peak Chris. 121.0 (50-130 cm/s) AO Peak GR. 5.90 mmHg AO Mean GR. 2.90 (<5 mmHg) AO VTI 25.6 (18-25 cm) TRENA (VTI) 2.58 (2.5-4.5 cm2) Mitral Valve MV A Velocity 75.0 (40-130 cm/s) E/A Ratio 0.98 Tricuspid Valve TR P. Velocity 219.00 cm/s RAP Estimate 10.00 mmHg RVSP 29.20 mmHg Left Ventricle The left ventricle is normal size. Left ventricular systolic function is normal. The left ventricular ejection fraction is within the normal range. There is normal left ventricular wall thickness. There is normal LV segmental wall motion. The left ventricular diastolic function is normal. LVEF is 55% Right Ventricle The right ventricle is mildly dilated. The right ventricular systolic function is normal. Atria The left atrium size is normal. The right atrium size is normal. There is no color Doppler evidence of interatrial shunt. Aortic Valve The aortic valve opens well. There is no hemodynamically significant aortic valvular stenosis. No aortic regurgitation is present. Mitral Valve The mitral valve is normal in structure. No evidence of mitral valve stenosis. Trace mitral regurgitation is present. Tricuspid Valve The tricuspid valve leaflets are thin and pliable. Mild tricuspid regurgitation. RVSP is 20-25 mmHg. Pulmonic Valve The pulmonary valve is grossly normal in structure. Trace pulmonic valve regurgitation is present. Great Vessels The aortic root is normal in size. IVC is normal in size and collapses >50% with inspiration. Pericardium There is no pericardial effusion. Conclusion Normal biventricular systolic function. No significant valvular stenosis or regurgitation. Electronically signed by : Marely Chen MD 07/06/2025 13:14:55
== END 2025-06-30 23:59 | disposition home or self-care (01) ==
LOC: RT 14:21
PROVIDERS: Visit Provider Nurse Practitioner Family
DX: I25.10 Atherosclerotic heart disease of native coronary artery without angina pectoris (principal); E78.2 Mixed hyperlipidemia; I10 Essential (primary) hypertension
CPT/HCPCS: 93306; 93880

== ENCOUNTER 2025-07-18 12:18 | Outpatient (CLI) | payer MEDICARE, SELFPAY ==
--- NOTE | 2025-07-18 | CA_ITS ---
APPROVED REPORT Exam: Pharmacologic Technologist: Gunjan Garcia Stress Nurse: Shravan Cortez Ht: 5 ft 8 in Wt: 150 lbs BSA: 1.81 m2 Indications: Chest Pain Medical History Medications: Aspirin, Atorvastatin, Clopidogrel, Doxazosin, Vitamin D2, Isosorbide, Samsca, Metoprolol Tartrate, Nifedipine ER, Nitroglycerin, Oflaxacin 0.3%, Tamulosin. Stress Test Details Test: Lexiscan Reason for pharmacologic stress test: changed from exercise stress test due to inability to reach target heart rate. HR Resting HR: 62 bpm Max Heart Rate (APMHR): 151.287745 bpm Max HR Achieved: 74 bpm Target HR (85% APMHR): 128.942753 bpm % of APMHR: 49.01 Recovery HR: 67 bpm BP Resting BP: 126.0/55.0 mmHg Max BP: 126.0/55.0 mmHg Recovery BP: 109.0/52.0 mmHg ECG Resting ECG: NSR, Baseline ST-T Abnormalities Inf/Lat. Stress ECG Conclusion Symptoms: No CP. Arrhythmias/Ectopy: None. ST-T Changes: Baseline EKG abnormalities noted with <1.5mm ST Segment changes during stress. Conclusion: Non-Diagnostic Lexiscan stress. Electronically signed by : Marely Chen MD 07/18/2025 18:44:22
--- OUTSIDE RECORDS SUMMARY | 2025-07-18 12:20 | XMS_ITS | Clinical Summary ---
Author Organization Healthcare Address [address] [id number] Care Team Providers Care Basket Grader Name Role Phone Quincy Mehta MD Primary Care Provider [phone] Family History Medical History Relation Name Comments [...] of Treatment Not on file Care Teams Basket Grader Relationship Specialty Start Date End Date Quincy Mehta MD [facility] [id number] PCP - General 11/30/20
--- NOTE | 2025-07-18 12:30 | NM_ITS ---
APPROVED REPORT Exam: Nuclear Stress Test Indication: cad, h/o mi, cabg, hypertension, hyperlipidemia, c.p., sob, palpitations, fatique Patient Location: Outpatient Stress Tech: Gunjan [place] Tech:Hanh López, ARRT, RT (R)(N) Ht: 5 ft 8 in Wt: 156 lbs HR: 61 bpm BP: 126/55 mmHg BSA: 1.84 m2 TID: 0.98 BMI: 23.7 Procedure: Patient received 0.4 mg of intravenous Lexiscan, resting heart rate 61 bpm, resting blood pressure 126/55 mmHg, with Lexiscan maximum heart rate achieved was 76 bpm which is % of the maximum predicted heart rate and blood pressure was 125/59 mmHg. With Lexiscan, patient denied any complaint of chest pain. Cardiac Stress and Resting SPECT Images: Cardiac Stress and Resting SPECT images were obtained using technetium 99m Myoview 32.6 mCi stress and 10.41 mCi at rest. Resting and stress imaging in supine and prone imaging demonstrates a medium-sized, moderate, partially reversible perfusion defect in the basal to mid inferior and inferoseptal LV chou. Gated imaging demonstrates normal global LV systolic function. LVEF is calculated at 57%. Conclusion: Medium-sized, moderate, partially reversible perfusion defect in the basal to mid inferior and inferoseptal LV chou. Findings are suggestive of partial reversible ischemia. Gated imaging demonstrates normal global LV systolic function. LVEF is calculated at 57%. Electronically signed by : Marely Chen MD 07/18/2025 18:42:42
[2025-07-18] MEDS: ISOTOPE MYOVIEW (PER STUDY) 1 DOSE IV (13:50)
[2025-07-18] MEDS: SODIUM CHLORIDE 0.9% 10ML SYR (RAD ONLY) 10 ML IV ×2 (13:50)
== END 2025-07-18 23:59 | disposition home or self-care (01) ==
LOC: RAD 12:18
PROVIDERS: Visit Provider Nurse Practitioner Family
DX: I25.10 Atherosclerotic heart disease of native coronary artery without angina pectoris (principal); E78.2 Mixed hyperlipidemia; I10 Essential (primary) hypertension; R94.39 Abnormal result of other cardiovascular function study; I25.2 Old myocardial infarction; Z95.1 Presence of aortocoronary bypass graft; R00.2 Palpitations; R42 Dizziness and giddiness; R94.31 Abnormal electrocardiogram [ECG] [EKG]
CPT/HCPCS: 78452; 93017; 93018; A9502; J2785